=== PATIENT | female | born 1955 | race African-American/Black ===

== ENCOUNTER 2021-05-10 11:02 | Observation (INO) | payer OTHER ==
[2021-05-10 12:09] LABS: BASO % 0.7 % (0-2.0); HEMATOCRIT 36.1 % (32.4-45.2); HEMOGLOBIN 11.9 GM/dL (10.7-15.3); LYMPH % 22.4 % (8-40); MCH 27.2 pg (25.7-33.7); MCHC 32.9 g/dl (32.0-36.0); MEAN CELL VOLUME 82.7 fl (80-96); MEAN PLT VOLUME 8.2 fl (7.5-11.1); MONO % 6.3 % (3.8-10.2); NEUT % 70.6 % (42.8-82.8); PLATELET COUNT 239 10^3/uL (134-434); RBC 4.36 M/mm3 (3.60-5.2); RDW 13.9 % (11.6-15.6); WHITE BLOOD COUNT 8.8 K/mm3 (4.0-10.0)
[2021-05-10 12:23] LABS: CHLORIDE 109 mmol/L (98-107); SODIUM 144 mmol/L (136-145)
[2021-05-10 12:26] LABS: CALCIUM 8.3 mg/dL (8.5-10.1)
[2021-05-10 12:27] LABS: ALBUMIN 3.2 g/dl (3.4-5.0); ANION GAP 8 MMOL/L (8-16); BLOOD UREA NITROGEN 8.6 mg/dL (7-18); CO2 28 mmol/L (21-32); GLUCOSE,RANDOM 88 mg/dL (74-106)
[2021-05-10 12:30] LABS: CREATININE 0.7 mg/dL (0.55-1.3); SGOT/AST 14 U/L (15-37); SGPT/ALT 19 U/L (13-61)
[2021-05-10 12:31] LABS: ALK PHOS 142 U/L (45-117); BILIRUBIN,TOTAL 0.3 mg/dL (0.2-1); TOT PROT 6.6 g/dl (6.4-8.2)
[2021-05-10] MEDS ORDERED: ASPIRIN 325 MG ENTERIC COATED TABLET (FP) PO ONE (13:12)
[2021-05-10] MEDS ORDERED: ASPIRIN 325 MG ENTERIC COATED TABLET (FP) ONE (14:12)
[2021-05-10] MEDS ORDERED: KETOROLAC TROMETHAMINE 30 MG/1 ML VIAL IM ONE (15:19)
[2021-05-10] MEDS ORDERED: ALBUTEROL SO4 HFA INHALER IH PRN (16:12)
[2021-05-10] MEDS ORDERED: KETOROLAC TROMETHAMINE 30 MG/1 ML VIAL ONE (16:42)
[2021-05-10] MEDS: FLUoxetine HCL 20 MG CAPSULE PO SCH (17:31)
[2021-05-10] MEDS: cloZAPine 100 MG TABLET PO SCH (17:31)
[2021-05-10] MEDS: ACETAMINOPHEN 325 MG TABLET (FP) PO PRN (20:56)
[2021-05-10 21:30] VITALS: BMI 34.0
[2021-05-10] MEDS ORDERED: ATORVASTATIN CA 20 MG TABLET (FP) PO SCH (22:00)
[2021-05-10] MEDS ORDERED: ATORVASTATIN CA 40 MG TABLET (FP) PO SCH (22:00)
[2021-05-11 07:34] LABS: BASO % 0.7 % (0-2.0); HEMATOCRIT 34.3 % (32.4-45.2); HEMOGLOBIN 11.4 GM/dL (10.7-15.3); MCH 27.6 pg (25.7-33.7); MCHC 33.2 g/dl (32.0-36.0); MEAN PLT VOLUME 8.6 fl (7.5-11.1); NEUT % 58.3 % (42.8-82.8); PLATELET COUNT 233 10^3/uL (134-434); RBC 4.13 M/mm3 (3.60-5.2); RDW 14.1 % (11.6-15.6); WHITE BLOOD COUNT 7.6 K/mm3 (4.0-10.0)
[2021-05-11 08:10] LABS: BLOOD UREA NITROGEN 18.8 mg/dL (7-18); CALCIUM 8.3 mg/dL (8.5-10.1)
[2021-05-11 08:12] LABS: BILIRUBIN,TOTAL 0.2 mg/dL (0.2-1); TOT PROT 6.4 g/dl (6.4-8.2)
[2021-05-11 08:13] LABS: CREATININE 0.8 mg/dL (0.55-1.3)
[2021-05-11 08:16] LABS: CHOLESTEROL 157 mg/dL (50-200)
[2021-05-11 08:17] LABS: LDL CHOLESTEROL (ONLY SJRH) 98 mg/dL (5-100); TRIGLYCERIDES 70 mg/dL (0-150)
[2021-05-11 08:20] LABS: HDL CHOLESTEROL 33 mg/dL (40-60)
[2021-05-11] MEDS ORDERED: ENOXAPARIN NA (PORCINE) 40 MG/0.4 ML DISP.SYRIN SQ SCH (10:00)
[2021-05-11] MEDS ORDERED: ASPIRIN 81 MG CHEWABLE TABLETS PO SCH (10:00)
[2021-05-11] MEDS ORDERED: PT OWN MED DRAWER 7, Y5N ONE ×2 (10:16→11:11)
[2021-05-11] MEDS: FLUoxetine HCL 20 MG CAPSULE PO SCH (11:09)
[2021-05-11] MEDS: ACETAMINOPHEN 325 MG TABLET (FP) PO PRN (11:11)
[2021-05-11] MEDS: cloZAPine 100 MG TABLET PO SCH (13:18)
[2021-05-11 14:09] VITALS: BP 120/89; PULSE 86; TEMP 97.5
== END 2021-05-11 15:44 | disposition home or self-care (01) ==
LOC: JER 11:02 → JERBED 13:56 → INTOOBSV 13:56 → UNDOADMOB 13:56 → JERBED 14:14 → J4W 20:41
PROVIDERS: ATTEND Internal Medicine
PROC: 3E023GC Introduction of Other Therapeutic Substance into Muscle, Percutaneous Approach (ICD-10-PCS; principal; 2021-05-10)
DX: F20.9 Schizophrenia, unspecified (principal); F41.0 Panic disorder [episodic paroxysmal anxiety]; E66.9 Obesity, unspecified; Z68.34 Body mass index [BMI] 34.0-34.9, adult; E78.00 Pure hypercholesterolemia, unspecified; J45.909 Unspecified asthma, uncomplicated; I24.9 Acute ischemic heart disease, unspecified; Z29.9 Encounter for prophylactic measures, unspecified
CPT/HCPCS: 36415; 71045-TC-FY; 80053; 80061; 82550; 82607; 83036; 83721; 83735; 84100; 84436; 84443; 84484; 85025; 86140; 86780; 93005; 93010; 93306-TC; 96372; 99285-25; C9803; G0378; U0003; U0005